=== PATIENT | male | born 1980 ===

== ENCOUNTER 2023-02-25 07:00 | Day surgery (SDC) | payer OTHER | END 2023-02-25 14:05 | disposition home or self-care (01) | LOC: AMB-ENDOS 07:00 | PROVIDERS: ATTEND Colon & Rectal Surgery | DX: D12.3 Benign neoplasm of transverse colon (principal); R15.9 Full incontinence of feces; K57.30 Diverticulosis of large intestine without perforation or abscess without bleeding; K64.8 Other hemorrhoids ==